=== PATIENT | male | born 1945 | race Hispanic/Latino ===

== ENCOUNTER 2017-12-14 20:17 | Emergency (ER) | payer MEDICARE, BC ==
--- NOTE | 2017-12-14 21:11 | ED PDOC ---
Arrival/HPI - General Chief Complaint: Male Genitourinary Time Seen by Provider: 12/14/17 20:57 - History of Present Illness Narrative History of Present Illness (Text): 72 y/o M c PMHx HTN, HLD, DM, L leg amputation, prostate cancer s/p radiation last treatment 1.5 weeks ago p/w urinary retention x 1-2 days. Patient states feels suprapubic pressure and decreased urination, went to urology office today and had gerardo placed but since, continues to have retention, states only a small amount going into gerardo bag and most of urine coming out of urethra around catheter, requiring patient to wear a diaper. He denies flank pain, fever , vomiting, dyspnea. Past Medical History - Cardiac Hx Pacemaker: No - Pulmonary Hx Respiratory Disorders: No - Neurological Hx Paralysis: No - HEENT Hx HEENT Disorder: No - Renal Hx Renal Disorder: No - Endocrine/Metabolic Hx Endocrine Disorders: No - Hematological/Oncological Hx Blood Transfusions: Yes (2007) Hx Blood Transfusion Reaction: No - Musculoskeletal/Rheumatological Hx Musculoskeletal Disorders: No - Psychiatric Hx Emotional Abuse: No Hx Physical Abuse: No Hx Substance Use: No - Anesthesia Hx Anesthesia Reactions: No Hx Malignant Hyperthermia: No - Suicidal Assessment Feels Threatened In Home Enviroment: No Family/Social History Family/Social History: No Known Family HX Smoking Status: Never Smoked Hx Alcohol Use: Yes (SOCIAL) Hx Substance Use: No Allergies/Home Meds Allergies/Adverse Reactions: Allergies No Known Allergies Allergy (Verified 12/14/17 20:50) Home Medications: Home Meds Medication Instructions Recorded Confirmed MetFORMIN [glucOPHAGE] 1,000 mg PO BID 11/02/16 12/14/17 Aspirin [Aspirin EC] 325 mg PO DAILY 12/14/17 12/14/17 Atorvastatin [Lipitor] 10 mg PO DAILY 12/14/17 12/14/17 GlipiZIDE [Glucotrol] 5 mg PO BID 12/14/17 12/14/17 SITagliptin [Januvia] 100 mg PO DAILY 12/14/17 12/14/17 Review of Systems - Physician Review All systems were reviewed & negative as marked: Yes - Review of Systems Constitutional: absent: Fevers Respiratory: absent: SOB Physical Exam - Physical Exam Narrative Physical Exam (Text): Gen: NAD Head: NC Eyes: EOMI ENT: MMM Neck: Supple Chest: No tenderness CV: Regular rate Resp: No accessory muscle use Abd: Suprapubic distention and tenderness Back: No CVA tenderness : Gerardo in place, bloody urine. Extremities: L leg prosthesis Skin: No rash Neuro: Alert Vital Signs Temp Pulse Resp BP Pulse Ox 12/14/17 21:09 97.9 F 120 H 20 151/84 H 100 Medical Decision Making ED Course and Treatment: Change gerardo and perform CBI 12/14/17 23:58 Urine cleared, urine flowing well into gerardo bag. Will discharge, f/u Urology, return to ED for worsening pain, fever, vomiting, inability to urinate or any other problem. - Lab Interpretations Lab Results: 12/14/17 22:13 12/14/17 22:13 Lab Results 12/14/17 22:15: Urine Color Light yellow, Urine Appearance Sl cloudy, Urine pH 6.0, Ur Specific [place] 1.015, Urine Protein 30 H, Urine Glucose (UA) 500 H, Urine Ketones Negative, Urine Blood Large H, Urine Nitrate Negative, Urine Bilirubin Negative, Urine Urobilinogen 0.2, Ur Leukocyte Esterase Trace H, Urine RBC Tntc, Urine WBC 0 - 2, Ur Epithelial Cells 0 - 2, Urine Bacteria Few 12/14/17 22:13: Sodium 140, Potassium 4.2, Chloride 99, Carbon Dioxide 25, Anion Gap 21 H, BUN 18, Creatinine 0.8, Est GFR ( Amer) > 60, Est GFR ( Non-Af Amer) > 60, Random Glucose 224 H, Calcium 10.4, Total Bilirubin 0.5, AST 20, ALT 15, Alkaline Phosphatase 67, Total Protein 7.6, Albumin 4.2, Globulin 3.4, Albumin/Globulin Ratio 1.3 12/14/17 22:13: WBC 9.0, RBC 4.42, Hgb 12.9 L, Hct 38.9 L, MCV 88.0, MCH 29.2, MCHC 33.2, RDW 13.7, Plt Count 310, MPV 10.0, Gran % 79.3 H, Lymph % (Auto) 15.5 L, Gem % (Auto) 3.1, Eos % (Auto) 1.8, Baso % (Auto) 0.3, Gran # 7.14 H, Lymph # (Auto) 1.4, Gem # (Auto) 0.3, Eos # (Auto) 0.2, Baso # (Auto) 0.03 - Medication Orders Current Medication Orders: Discontinued Medications Ketorolac Tromethamine (Toradol) 15 mg IVP STAT STA Stop: 12/14/17 23:08 Last Admin: 12/14/17 23:15 Dose: 15 mg MAR Pain Assessment Document 12/14/17 23:15 RD (Rec: 12/14/17 23:16 RD [id number]) Pain Reassessment Is this a pain reassessment? No Sleep Is patient sleeping during reassessment? No Presence of Pain Presence of Pain Yes Pain Scale Used Pain Scale Used Numeric Description Description Intermittent Pain Behavior Crying Guarding Facial Grimacing Alleviating Factors/Management Medication Techniques Alleviating Factors Medication IVP Administration Document 12/14/17 23:15 RD (Rec: 12/14/17 23:16 RD [id number]) Charges for Administration # of IVP Administrations 1 Disposition/Present on Arrival - Present on Arrival Any Indicators Present on Arrival: No History of DVT/PE: No History of Uncontrolled Diabetes: No Urinary Catheter: No History of Decub. Ulcer: No History Surgical Site Infection Following: None - Disposition Have Diagnosis and Disposition been Completed?: Yes Diagnosis: Urinary retention Disposition: HOME/ ROUTINE Disposition Time: 23:59 Patient Plan: Discharge Condition: STABLE Discharge Instructions (ExitCare): Urinary Retention (DC) Referrals: Torito THOMAS,Manish Vera MD [Primary Care Provider] - Follow up with primary Forms: [employer] ([place])
[2017-12-14 21:31] VITALS: TEMP 97.9; BMI 26.6
[2017-12-14 22:19] LABS: BASO # 0.03 K/mm3 (0.0-2.0); BASO % 0.3 % (0.0-3.0); EOS # 0.2 (0.0-0.7); EOS % 1.8 % (1.5-5.0); GRAN # 7.14 (1.4-6.5); GRAN % 79.3 % (50.0-68.0); HEMOGLOBIN 12.9 g/dL (14.0-18.0); LYMPH # 1.4 (1.2-3.4); LYMPH % 15.5 % (22.0-35.0); MEAN CORPUSCULAR HEMOGLOBIN 29.2 pg (25.0-35.0); MEAN CORPUSCULAR HGB CONC 33.2 g/dl (31.0-37.0); MONO # 0.3 (0.1-0.6); MONO % 3.1 % (1.0-6.0); RBC 4.42 10^6/uL (3.5-6.1); RED CELL DISTRIBUTION WIDTH 13.7 % (11.5-14.5)
[2017-12-14 22:27] LABS: ALB/GLOB RATIO 1.3 (1.1-1.8); ALBUMIN 4.2 g/dL (3.0-4.8); ALT/SGPT 15 U/L (7-56); AST/SGOT 20 U/L (17-59); BLOOD UREA NITROGEN 18 mg/dL (7-21); CALCIUM 10.4 mg/dL (8.4-10.5); GFR AFRICAN-AMERICAN > 60; GFR NON-AFRICAN AMERICAN > 60
[2017-12-14 22:29] LABS: URINE BILIRUBIN NEGATIVE (NEGATIVE); URINE BLOOD LARGE (NEGATIVE); URINE GLUCOSE (UA) 500 mg/dL (NEGATIVE); URINE LEUKOCYTE ESTERASE TRACE Leu/uL (NEGATIVE); URINE PROTEIN 30 mg/dL (<30 mg/dL); URINE UROBILINOGEN 0.2 E.U./dL (<1 E.U./dL)
[2017-12-14 22:30] LABS: URINE APPEARANCE SL CLOUDY (CLEAR); URINE COLOR LIGHT YELLOW (YELLOW)
[2017-12-14 22:51] LABS: URINE BACTERIA FEW (NEG); URINE EPITHELIAL CELLS 0 - 2 /hpf (0-5); URINE RBC TNTC /hpf (0-2); URINE WBC 0 - 2 /hpf (0-6)
[2017-12-15 00:42] VITALS: BP 141/81; PULSE 78; RESP 18; O2SAT 97
== END 2017-12-15 00:41 | disposition home or self-care (01) ==
LOC: ED 20:17
DX: R33.9 Retention of urine, unspecified (principal); E11.9 Type 2 diabetes mellitus without complications; E78.5 Hyperlipidemia, unspecified; I10 Essential (primary) hypertension; Z85.46 Personal history of malignant neoplasm of prostate
CPT/HCPCS: 80053; 81001; 85025; 87086; 96374; 99284; J1885

== ENCOUNTER 2017-12-22 05:51 | Emergency (ER) | payer MEDICARE, BC ==
[2017-12-22 05:51] VITALS: BMI 26.6
[2017-12-22 06:09] VITALS: BP 158/76; PULSE 86; RESP 18; TEMP 97.5; O2SAT 97
--- NOTE | 2017-12-22 06:13 | ED PDOC ---
Arrival/HPI - General Chief Complaint: Male Genitourinary Time Seen by Provider: 12/22/17 05:54 - History of Present Illness Narrative History of Present Illness (Text): 12/22/17 06:11 72 yo male, hx of prostate ca s/p radiation, presents with urinary retention. seen last week, had gerardo placed. normal labs and cr. pt sent home and f/u with urology. gerardo removed on monday, but states difficulty voiding since yesterday evening. no other complaints. gerardo placed in er with resolution of pain. Past Medical History - Cardiac Hx Pacemaker: No - Pulmonary Hx Respiratory Disorders: No - Neurological Hx Paralysis: No - HEENT Hx HEENT Disorder: No - Renal Hx Renal Disorder: No - Endocrine/Metabolic Hx Endocrine Disorders: No - Hematological/Oncological Hx Blood Transfusions: Yes (2007) Hx Blood Transfusion Reaction: No - Musculoskeletal/Rheumatological Hx Musculoskeletal Disorders: No - Psychiatric Hx Emotional Abuse: No Hx Physical Abuse: No Hx Substance Use: No - Surgical History Hx Eye Surgery: Yes (right) Hx Orthopedic Surgery: Yes (left bka) - Anesthesia Hx Anesthesia Reactions: No Hx Malignant Hyperthermia: No - Suicidal Assessment Feels Threatened In Home Enviroment: No Family/Social History Family/Social History: Unknown Family HX Smoking Status: Former Smoker Hx Alcohol Use: Yes (SOCIAL) Hx Substance Use: No Allergies/Home Meds Allergies/Adverse Reactions: Allergies No Known Allergies Allergy (Verified 12/22/17 06:09) Home Medications: Home Meds Medication Instructions Recorded Confirmed MetFORMIN [glucOPHAGE] 1,000 mg PO BID 11/02/16 12/22/17 Aspirin [Aspirin EC] 325 mg PO DAILY 12/14/17 12/22/17 Atorvastatin [Lipitor] 10 mg PO DAILY 12/14/17 12/22/17 GlipiZIDE [Glucotrol] 5 mg PO BID 12/14/17 12/22/17 SITagliptin [Januvia] 100 mg PO DAILY 12/14/17 12/22/17 Enalapril Maleate [Vasotec] 2.5 mg PO DAILY 12/22/17 12/22/17 Nitrofurantoin Monohyd/M-Cryst 100 mg PO DAILY 12/22/17 12/22/17 [Nitrofurantoin Monohydrate/Macrocrystals] Silodosin [Rapaflo] 8 mg PO DAILY 12/22/17 12/22/17 Review of Systems - Review of Systems Constitutional: Normal Eyes: Normal ENT: Normal Respiratory: Normal Cardiovascular: Normal Gastrointestinal: Abdominal Pain Genitourinary Male: Urinary Output Changes Musculoskeletal: Normal Skin: Normal Neurological: Normal Endocrine: Normal Hemo/Lymphatic: Normal Psychiatric: Normal Physical Exam Vital Signs Temp Pulse Resp BP Pulse Ox 12/22/17 06:05 97.5 F L 86 18 158/76 H 97 Temperature: Afebrile Blood Pressure: Normal Pulse: Regular Respiratory Rate: Normal Appearance: Positive for: Well-Appearing, Non-Toxic, Comfortable Pain Distress: None Mental Status: Positive for: Alert and Oriented X 3 - Systems Exam Head: Present: Atraumatic, Normocephalic Pupils: Present: PERRL Extroacular Muscles: Present: EOMI Conjunctiva: Present: Normal Mouth: Present: Moist Mucous Membranes Neck: Present: Normal Range of Motion Respiratory/Chest: Present: Clear to Auscultation, Good Air Exchange. No: Respiratory Distress, Accessory Muscle Use Cardiovascular: Present: Regular Rate and Rhythm, Normal S1, S2. No: Murmurs Abdomen: No: Tenderness, Distention, Peritoneal Signs, Rebound, Guarding Back: Present: Normal Inspection Upper Extremity: Present: Normal Inspection. No: Cyanosis, Edema Lower Extremity: Present: Normal Inspection. No: Edema Neurological: Present: GCS=15, CN II-XII Intact, Speech Normal Skin: Present: Warm, Dry, Normal Color. No: Rashes Psychiatric: Present: Alert, Oriented x 3, Normal Insight, Normal Concentration Medical Decision Making ED Course and Treatment: 12/22/17 06:12 gerardo placed with resolution of symptoms. normal cr last week. advise outpt fu with urology Disposition/Present on Arrival - Present on Arrival Any Indicators Present on Arrival: No History of DVT/PE: No History of Uncontrolled Diabetes: No Urinary Catheter: No History of Decub. Ulcer: No History Surgical Site Infection Following: None - Disposition Have Diagnosis and Disposition been Completed?: Yes Diagnosis: Urinary retention Disposition: HOME/ ROUTINE Disposition Time: 07:00 Condition: STABLE Discharge Instructions (ExitCare): Urinary Retention Additional Instructions: please follow up with your urologist. return t o er with worsening symptoms or concerns. Referrals: Mracos Montes MD [Staff Provider] - Follow up with primary Forms: [facility] (Gabonese)
== END 2017-12-22 06:35 | disposition home or self-care (01) ==
LOC: ED 05:51
DX: R33.9 Retention of urine, unspecified (principal)

== ENCOUNTER 2017-12-22 07:55 | Emergency (ER) | payer MEDICARE, BC ==
[2017-12-22 07:56] VITALS: BMI 26.6
[2017-12-22 07:59] VITALS: RESP 18; TEMP 98.1
--- NOTE | 2017-12-22 08:16 | ED PDOC ---
Arrival/HPI - General Chief Complaint: Male Genitourinary Time Seen by Provider: 12/22/17 07:57 Historian: Patient - History of Present Illness Narrative History of Present Illness (Text): 12/22/17 08:00 72 year old male, whose PMH includes prostate CA s/p radiation, who presents to the emergency department complaining of leaking gerardo since a new one was placed on 12/19/17. Patient states the gerardo was removed and a new one placed due to pain, but it has not been resolved because it continue leaking and feels pressure and pain on his lower abdomen. Last radiation date was on 12/01/17. Patient denies other complaints. PMD: Dr. Ugarte Urologist: Dr. Huber Time/Duration: < week Symptom Onset: Sudden Symptom Course: Unchanged Activities at Onset: Rest Context: Home Past Medical History - Provider Review Nursing Documentation Reviewed: Yes - Infectious Disease Hx of Infectious Diseases: None - Cardiac Hx Pacemaker: No - Pulmonary Hx Respiratory Disorders: No - Neurological Hx Paralysis: No - HEENT Hx HEENT Disorder: No - Renal Hx Renal Disorder: No - Endocrine/Metabolic Hx Endocrine Disorders: No - Hematological/Oncological Hx Blood Transfusions: Yes (2008) Hx Blood Transfusion Reaction: No - Musculoskeletal/Rheumatological Hx Musculoskeletal Disorders: No - Psychiatric Hx Emotional Abuse: No Hx Physical Abuse: No Hx Substance Use: No - Surgical History Hx Eye Surgery: Yes (right) Hx Orthopedic Surgery: Yes (left bka) - Anesthesia Hx Anesthesia Reactions: No Hx Malignant Hyperthermia: No - Suicidal Assessment Feels Threatened In Home Enviroment: No Family/Social History - Physician Review Nursing Documentation Reviewed: Yes Family/Social History: Unknown Family HX Smoking Status: Former Smoker Hx Alcohol Use: Yes (SOCIAL) Hx Substance Use: No Allergies/Home Meds Allergies/Adverse Reactions: Allergies No Known Allergies Allergy (Verified 12/22/17 06:09) Home Medications: Home Meds Medication Instructions Recorded Confirmed MetFORMIN [glucOPHAGE] 1,000 mg PO BID 11/02/16 12/22/17 Aspirin [Aspirin EC] 325 mg PO DAILY 12/14/17 12/22/17 Atorvastatin [Lipitor] 10 mg PO DAILY 12/14/17 12/22/17 GlipiZIDE [Glucotrol] 5 mg PO BID 12/14/17 12/22/17 SITagliptin [Januvia] 100 mg PO DAILY 12/14/17 12/22/17 Enalapril Maleate [Vasotec] 2.5 mg PO DAILY 12/22/17 12/22/17 Nitrofurantoin Monohyd/M-Cryst 100 mg PO DAILY 12/22/17 12/22/17 [Nitrofurantoin Monohydrate/Macrocrystals] Silodosin [Rapaflo] 8 mg PO DAILY 12/22/17 12/22/17 Review of Systems - Review of Systems Constitutional: absent: Fevers ENT: absent: Sore Throat Respiratory: absent: SOB Cardiovascular: absent: Chest Pain Gastrointestinal: Abdominal Pain (lower abdominal pain ). absent: Diarrhea, Vomiting Genitourinary Male: Other (leaking gerardo). absent: Hematuria Musculoskeletal: absent: Back Pain Skin: absent: Rash Neurological: absent: Headache Endocrine: absent: Diaphoresis Physical Exam Vital Signs Reviewed: Yes Vital Signs Temp Pulse Resp BP Pulse Ox 12/22/17 09:34 86 18 153/78 H 95 12/22/17 07:56 98.1 F 91 H 18 152/86 H 98 Temperature: Afebrile Blood Pressure: Hypertensive Pulse: Tachycardic Respiratory Rate: Normal Appearance: Positive for: Well-Appearing, Non-Toxic, Comfortable Pain Distress: None Mental Status: Positive for: Alert and Oriented X 3 - Systems Exam Head: Present: Atraumatic, Normocephalic Pupils: Present: PERRL Extroacular Muscles: Present: EOMI Conjunctiva: Present: Normal Respiratory/Chest: Present: Clear to Auscultation, Good Air Exchange. No: Respiratory Distress, Accessory Muscle Use, Wheezes, Rales, Rhonchi Cardiovascular: Present: Regular Rate and Rhythm, Normal S1, S2. No: Murmurs Abdomen: No: Tenderness, Distention, Peritoneal Signs, Rebound, Guarding Genitourinary Male: Present: Other (gerardo in place and yellow urine in bag). No : Penile Discharge, Erythema Neurological: Present: GCS=15, CN II-XII Intact, Speech Normal Skin: Present: Warm, Dry, Normal Color. No: Rashes Psychiatric: Present: Alert, Oriented x 3, Normal Insight, Normal Concentration Medical Decision Making ED Course and Treatment: 12/22/17 Impression: 72 year old male, with gerardo in place, yellow urine in bag, and no erythema in penis. Differential Diagnosis included but are not limited to: Bladder Spasm; Needs larger gerardo Plan: -- Motrin -- Gerardo -- Reassess and disposition Prior Visits: Notes and results from previous visits were reviewed. Patient was last seen in the emergency department on 12/21/17 Progress Notes: Patient received a new gerardo [address] YUNI Mayfield. Patient received motrin and Flexeril with improvement of symptoms. He was able to walk with no issues. he was able to pass urine without leakage. He was advised to make sure he follow up with his urologist in 1-2days. - Medication Orders Current Medication Orders: Discontinued Medications Cyclobenzaprine HCl (Flexeril) 5 mg PO STAT STA Stop: 12/22/17 09:03 Last Admin: 12/22/17 09:27 Dose: 5 mg Ibuprofen (Motrin Tab) 600 mg PO STAT STA Stop: 12/22/17 08:18 Last Admin: 12/22/17 08:37 Dose: 600 mg MAR Pain/Vitals Document 12/22/17 08:37 SRE (Rec: 12/22/17 08:38 SRE [id number]) Pain Reassessment Is This A Pain ReAssessment? Yes Sleep Is patient sleeping during reassessment? No Presence of Pain Presence of Pain Yes Pain Scale Used Pain Scale Used Numeric - Scribe Statement The provider has reviewed the documentation as recorded by the Candy Durbin Provider Scribe Attestation: All medical record entries made by the Scribe were at my direction and personally dictated by me. I have reviewed the chart and agree that the record accurately reflects my personal performance of the history, physical exam, medical decision making, and the department course for this patient. I have also personally directed, reviewed, and agree with the discharge instructions and disposition. Disposition/Present on Arrival - Present on Arrival Any Indicators Present on Arrival: No History of DVT/PE: No History of Uncontrolled Diabetes: No Urinary Catheter: No History of Decub. Ulcer: No History Surgical Site Infection Following: None - Disposition Have Diagnosis and Disposition been Completed?: Yes Diagnosis: Urinary retention Disposition: HOME/ ROUTINE Disposition Time: 09:42 Patient Plan: Discharge Condition: IMPROVED Discharge Instructions (ExitCare): Gerardo Catheter, Male Additional Instructions: Mr Chung, thank you for letting us take care of you today. Your provider was Dr. Mcgill. You were treated for Gerardo Replacement. The emergency medical care you received today was directed at your acute symptoms. If you were prescribed any medication, please fill it and take as directed. It may take several days for your symptoms to resolve. Return to the Emergency Department if your symptoms worsen, do not improve, or if you have any other problems. Please contact your doctor or call one of the physicians/clinics you have been referred to that are listed on the Patient Visit Information form that is included in your discharge packet. Bring any paperwork you were given at discharge with you along with any medications you are taking to your follow up visit. Our treatment cannot replace ongoing medical care by a primary care provider (PCP) outside of the emergency department. Thank you for allowing the [facility] team to be part of your care today. If you had an X-Ray or CT scan: A Radiologist will review the ED reading if any change in treatment is needed we will contact you. If you had a blood, urine, or wound culture: It will take several days for the results, if any change in treatment is needed we will contact you. If you had an STI test: It will take 48 hours for the results. Please call after 1 week if you have not heard back. Referrals: [facility] Nona Mohr, [Non-Staff] - Follow up with primary Forms: [facility] [employer] [facility] (Khmer)
[2017-12-22 09:35] VITALS: BP 153/78; PULSE 86; O2SAT 95
== END 2017-12-22 09:42 | disposition home or self-care (01) ==
LOC: ED 07:55
DX: R33.9 Retention of urine, unspecified (principal)

== ENCOUNTER 2017-12-29 04:56 | Emergency (ER) | payer MEDICARE, BC ==
--- NOTE | 2017-12-29 05:59 | ED PDOC ---
Arrival/HPI - General Time Seen by Provider: 12/29/17 05:28 Historian: Patient - History of Present Illness Narrative History of Present Illness (Text): 12/29/17 05:56 A 72 year old male, whose past medical history includes prostate CA and urinary retention, presents to the emergency department complaining of difficulty urinating this evening.The patient notes that he has a history of urinary retention and that he had a catheter removed 2 days ago. He states that his symptoms have returned since then. The patient denies fevers, chills, headache, dizziness, chest pain, shortness of breath, dyspnea on exertion, cough, nausea, vomiting, diarrhea, back pain, neck pain, bowel changes, or any other complaint. PMD: Dr. Ugarte Urologist: Dr. Huber Time/Duration: Other (Today) Symptom Onset: Sudden Symptom Course: Unchanged Activities at Onset: Rest, Light Context: Home Past Medical History - Provider Review Nursing Documentation Reviewed: Yes - Infectious Disease Hx of Infectious Diseases: None - Cardiac Hx Pacemaker: No - Pulmonary Hx Respiratory Disorders: No - Neurological Hx Paralysis: No - HEENT Hx HEENT Disorder: No - Renal Hx Renal Disorder: No - Endocrine/Metabolic Hx Endocrine Disorders: No - Hematological/Oncological Hx Blood Transfusions: Yes (2007) Hx Blood Transfusion Reaction: No - Musculoskeletal/Rheumatological Hx Musculoskeletal Disorders: No - Psychiatric Hx Emotional Abuse: No Hx Physical Abuse: No Hx Substance Use: No - Surgical History Hx Eye Surgery: Yes (right) Hx Orthopedic Surgery: Yes (left bka) - Anesthesia Hx Anesthesia Reactions: No Hx Malignant Hyperthermia: No - Suicidal Assessment Feels Threatened In Home Enviroment: No Family/Social History - Physician Review Nursing Documentation Reviewed: Yes Family/Social History: No Known Family HX Smoking Status: Former Smoker Hx Alcohol Use: Yes (SOCIAL) Hx Substance Use: No Allergies/Home Meds Allergies/Adverse Reactions: Allergies No Known Allergies Allergy (Verified 12/22/17 06:09) Home Medications: Home Meds Medication Instructions Recorded Confirmed MetFORMIN [glucOPHAGE] 1,000 mg PO BID 11/02/16 12/22/17 Aspirin [Aspirin EC] 325 mg PO DAILY 12/14/17 12/22/17 Atorvastatin [Lipitor] 10 mg PO DAILY 12/14/17 12/22/17 GlipiZIDE [Glucotrol] 5 mg PO BID 12/14/17 12/22/17 SITagliptin [Januvia] 100 mg PO DAILY 12/14/17 12/22/17 Enalapril Maleate [Vasotec] 2.5 mg PO DAILY 12/22/17 12/22/17 Nitrofurantoin Monohyd/M-Cryst 100 mg PO DAILY 12/22/17 12/22/17 [Nitrofurantoin Monohydrate/Macrocrystals] Silodosin [Rapaflo] 8 mg PO DAILY 12/22/17 12/22/17 Review of Systems - Physician Review All systems were reviewed & negative as marked: Yes - Review of Systems Constitutional: absent: Fevers, Night Sweats Respiratory: absent: SOB, Cough Cardiovascular: absent: Chest Pain, AMEZQUITA Gastrointestinal: absent: Stool Changes, Diarrhea, Nausea, Vomiting Genitourinary Male: Urinary Output Changes (Urinary retention) Musculoskeletal: absent: Back Pain, Neck Pain Neurological: absent: Headache, Dizziness Physical Exam Vital Signs Reviewed: Yes Vital Signs Temp Pulse Resp BP Pulse Ox 12/29/17 05:45 98.1 F 12/29/17 05:33 97.6 F 82 18 132/71 96 Temperature: Afebrile Blood Pressure: Normal Pulse: Regular Respiratory Rate: Normal Appearance: Positive for: Well-Appearing, Non-Toxic, Comfortable Pain Distress: None Mental Status: Positive for: Alert and Oriented X 3 - Systems Exam Head: Present: Atraumatic, Normocephalic Pupils: Present: PERRL Extroacular Muscles: Present: EOMI Conjunctiva: Present: Normal Mouth: Present: Moist Mucous Membranes Neck: Present: Normal Range of Motion Respiratory/Chest: Present: Clear to Auscultation, Good Air Exchange. No: Respiratory Distress, Accessory Muscle Use Cardiovascular: Present: Regular Rate and Rhythm, Normal S1, S2. No: Murmurs Abdomen: Present: Distention (Suprapubic distension ). No: Peritoneal Signs Back: Present: Normal Inspection Upper Extremity: Present: Normal Inspection. No: Cyanosis, Edema Lower Extremity: Present: Normal Inspection. No: Edema Neurological: Present: GCS=15, CN II-XII Intact, Speech Normal Skin: Present: Warm, Dry, Normal Color. No: Rashes Psychiatric: Present: Alert, Oriented x 3, Normal Insight, Normal Concentration Medical Decision Making ED Course and Treatment: 12/29/17 06:00 Impression: A 72 year old male presents to the emergency department complaining of urinary retention this evening. Patient notes he had a catheter removed 2 days ago. Plan: -- Reassess and disposition Progress Notes: 12/29/17 06:20 Pt. had gerardo catheter placed with passage of clear urine and relief. - Scribe Statement The provider has reviewed the documentation as recorded by the Scribe Selena Omalley Provider Scribe Attestation: All medical record entries made by the Scribe were at my direction and personally dictated by me. I have reviewed the chart and agree that the record accurately reflects my personal performance of the history, physical exam, medical decision making, and the department course for this patient. I have also personally directed, reviewed, and agree with the discharge instructions and disposition. Disposition/Present on Arrival - Present on Arrival Any Indicators Present on Arrival: No History of DVT/PE: No History of Uncontrolled Diabetes: No Urinary Catheter: No History Surgical Site Infection Following: None - Disposition Have Diagnosis and Disposition been Completed?: Yes Diagnosis: Urinary retention Disposition: HOME/ ROUTINE Disposition Time: 06:40 Patient Plan: Discharge Condition: GOOD Discharge Instructions (ExitCare): Urinary Retention (DC), Gerardo Catheter, Male Additional Instructions: Maintain gerardo catheter/use leg bag/follow up with your urologist this week
[2017-12-29 06:13] VITALS: BMI 25.8
[2017-12-29 07:54] VITALS: BP 130/72; PULSE 74; RESP 17; TEMP 98; O2SAT 98
== END 2017-12-29 07:54 | disposition home or self-care (01) ==
LOC: ED 04:56
DX: R33.9 Retention of urine, unspecified (principal); Z85.46 Personal history of malignant neoplasm of prostate; Z87.891 Personal history of nicotine dependence

== ENCOUNTER 2017-12-31 04:44 | Emergency (ER) | payer MEDICARE, BC ==
[2017-12-31 04:45] VITALS: BMI 25.8
--- NOTE | 2017-12-31 06:29 | ED PDOC ---
Arrival/HPI - General Chief Complaint: Male Genitourinary Time Seen by Provider: 12/31/17 04:53 Historian: Patient, Spouse - History of Present Illness Narrative History of Present Illness (Text): 72yoM, with hx of chronic urinary retention, had gerardo placed 2 days ago and now having difficulty voiding and having abdomen discomfort, but otherwise no n/ v/son/dizziness/sob/chest pain/numbness/tingling/blood in urine. 12/31/17 06:28 Time/Duration: Prior to Arrival Symptom Onset: Gradual Symptom Course: Unchanged Quality: Aching Severity Level: 2 Activities at Onset: Rest Context: Sitting Past Medical History - Provider Review Nursing Documentation Reviewed: Yes - Travel History Have you recently traveled outside [place] w/in the past 3 mons?: No - Infectious Disease Hx of Infectious Diseases: None - Cardiac Hx Pacemaker: No - Pulmonary Hx Respiratory Disorders: No - Neurological Hx Paralysis: No - HEENT Hx HEENT Disorder: No - Renal Hx Renal Disorder: No - Endocrine/Metabolic Hx Endocrine Disorders: No - Hematological/Oncological Hx Blood Transfusions: Yes (2007) Hx Blood Transfusion Reaction: No - Musculoskeletal/Rheumatological Hx Musculoskeletal Disorders: No - Gastrointestinal Hx Gastrointestinal Disorders: No - Genitourinary/Gynecological Hx Prostate Problems: Yes - Psychiatric Hx Emotional Abuse: No Hx Physical Abuse: No Hx Substance Use: No - Surgical History Hx Eye Surgery: Yes (right) Hx Orthopedic Surgery: Yes (left bka) - Anesthesia Hx Anesthesia Reactions: No Hx Malignant Hyperthermia: No - Suicidal Assessment Feels Threatened In Home Enviroment: No Family/Social History - Physician Review Nursing Documentation Reviewed: Yes Family/Social History: No Known Family HX Smoking Status: Former Smoker Hx Alcohol Use: Yes (SOCIAL) Hx Substance Use: No Allergies/Home Meds Allergies/Adverse Reactions: Allergies No Known Allergies Allergy (Verified 12/22/17 06:09) Home Medications: Home Meds Medication Instructions Recorded Confirmed MetFORMIN [glucOPHAGE] 1,000 mg PO BID 11/02/16 12/22/17 Aspirin [Aspirin EC] 325 mg PO DAILY 12/14/17 12/22/17 Atorvastatin [Lipitor] 10 mg PO DAILY 12/14/17 12/22/17 GlipiZIDE [Glucotrol] 5 mg PO BID 12/14/17 12/22/17 SITagliptin [Januvia] 100 mg PO DAILY 12/14/17 12/22/17 Enalapril Maleate [Vasotec] 2.5 mg PO DAILY 12/22/17 12/22/17 Nitrofurantoin Monohyd/M-Cryst 100 mg PO DAILY 12/22/17 12/22/17 [Nitrofurantoin Monohydrate/Macrocrystals] Silodosin [Rapaflo] 8 mg PO DAILY 12/22/17 12/22/17 Review of Systems - Review of Systems Constitutional: Normal Eyes: Normal ENT: Normal Respiratory: Normal Cardiovascular: Normal Gastrointestinal: Normal Genitourinary Male: Urinary Output Changes Musculoskeletal: Normal Skin: Normal Neurological: Normal Endocrine: Normal Hemo/Lymphatic: Normal Psychiatric: Normal Physical Exam Vital Signs Reviewed: Yes Vital Signs Temp Pulse Resp BP Pulse Ox 12/31/17 05:26 98.0 F 90 18 166/90 H 98 Temperature: Afebrile Blood Pressure: Hypertensive Pulse: Regular Respiratory Rate: Normal Appearance: Positive for: Non-Toxic, Uncomfortable Pain Distress: None Mental Status: Positive for: Alert and Oriented X 3 - Systems Exam Head: Present: Atraumatic, Normocephalic Pupils: Present: PERRL Extroacular Muscles: Present: EOMI Conjunctiva: Present: Normal Ears: Present: Normal Mouth: Present: Moist Mucous Membranes Pharnyx: Present: Normal Nose (External): Present: Atraumatic Nose (Internal): Present: Normal Inspection Neck: Present: Normal Range of Motion Respiratory/Chest: Present: Clear to Auscultation, Good Air Exchange Cardiovascular: Present: Regular Rate and Rhythm Abdomen: No: Tenderness, Distention, Normal Bowel Sounds, Peritoneal Signs, Rebound, Guarding, McBurney's Point Tender, Rovsing's Sign Present, Hernias, Feeding Tubes, Ostomy Tubes, Mass/Organomegaly, Scars, Other Genitourinary Male: Present: Normal External Genitalia. No: Circumcised Penis, Lesions, Penile Discharge, Testicle Tenderness, Penile Swelling, Masses, Erythema, Hernias, Testicle Swelling, Prostate Tenderness, Prostate Enlargement , Other Upper Extremity: Present: Normal Inspection Lower Extremity: Present: Normal Inspection Neurological: Present: GCS=15, CN II-XII Intact, Speech Normal, Motor Func Grossly Intact Skin: Present: Warm, Normal Color Psychiatric: Present: Alert, Oriented x 3, Normal Insight, Normal Concentration Medical Decision Making ED Course and Treatment: 72yoM, with hx of chronic urinary retention, had gerardo placed 2 days ago and now having difficulty voiding and having abdomen discomfort, but otherwise no n/ v/son/dizziness/sob/chest pain/numbness/tingling/blood in urine. You were otherwise breathing easily, pink moist lips, smiling and talking with your , good strength/sensation, alert/oriented, walking easily, clear lungs, no abdomen tenderness, catheter in place without penis/scrotal/testicular discomfort, no fever temp 98, stable heart rate 90, stable breathing rate 18, excellent oxygen level 98% room air, elevated blood pressure 166/90 which we recommend repeat in 2-3 days primary care office to determine further treatment , you have blood tests no infection count 7.3, stable blood level hemoglobin 11.8/platelets 285, stable chemistry, urine test no acute sign of infection, tylenol, observation done in the ED. signed out to Dr. Vidales to radiology imaging/disposition. 12/31/17 07:46 Reassessment Condition: Re-examined, Improved - Lab Interpretations Lab Results: 12/31/17 06:12 12/31/17 06:12 Lab Results 12/31/17 06:14: Urine Color Yellow, Urine Appearance Sl cloudy, Urine pH 6.0, Ur Specific [place] >= 1.030, Urine Protein 30 H, Urine Glucose (UA) Negative, Urine Ketones Trace H, Urine Blood Moderate H, Urine Nitrate Negative, Urine Bilirubin Negative, Urine Urobilinogen 0.2, Ur Leukocyte Esterase Negative, Urine RBC 2 - 5, Urine WBC 0 - 2, Ur Epithelial Cells 1 - 3, Urine Bacteria Few 12/31/17 06:12: Sodium 140, Potassium 4.4, Chloride 103, Carbon Dioxide 24, Anion Gap 18, BUN 25 H, Creatinine 0.7 L, Est GFR ( Amer) > 60, Est GFR ( Non-Af Amer) > 60, Random Glucose 123 H, Calcium 9.4, Total Bilirubin 0.3, AST 20, ALT 19, Alkaline Phosphatase 62, Total Protein 6.7, Albumin 3.9, Globulin 2.8, Albumin/Globulin Ratio 1.4, Lipase 125 12/31/17 06:12: PT 10.9, INR 0.95, APTT 29.4 12/31/17 06:12: WBC 7.3, RBC 4.08, Hgb 11.8 L, Hct 35.9 L, MCV 88.0, MCH 28.9, MCHC 32.9, RDW 13.7, Plt Count 285, MPV 9.7, Gran % 71.2 H, Lymph % (Auto) 19.4 L, [place] % (Auto) 6.2 H, Eos % (Auto) 2.8, Baso % (Auto) 0.4, Gran # 5.16, Lymph # (Auto) 1.4, Cross # (Auto) 0.5, Eos # (Auto) 0.2, Baso # (Auto) 0.03 - RAD Interpretation Radiology Orders: 12/31/17 06:53 ABDOMEN & PELVIS [ABD & PELVIS IV CONTRAST ONLY] [CT] Stat - Medication Orders Current Medication Orders: Sodium Chloride (Sodium Chloride 0.9%) 1,000 mls @ 100 mls/hr IV .Q10H LILIA Last Admin: 12/31/17 07:13 Dose: 100 mls/hr eMAR Start Stop Document 12/31/17 07:13 IT (Rec: 12/31/17 07:13 IT [id number] Intravenous Solution Start Date 12/31/17 Start Time 07:13 Discontinued Medications Acetaminophen (Tylenol 325mg Tab) 975 mg PO STAT STA Stop: 12/31/17 05:59 Last Admin: 12/31/17 06:25 Dose: 975 mg MAR Pain/Vitals Document 12/31/17 06:25 IT (Rec: 12/31/17 06:27 IT [id number]) Pain Reassessment Is This A Pain ReAssessment? No Sleep Is patient sleeping during reassessment? No Presence of Pain Presence of Pain Yes Pain Scale Used Pain Scale Used Numeric Location Left, Right or Bilateral Bilateral Pain Location Body Site Abdomen Disposition/Present on Arrival - Present on Arrival History of DVT/PE: No History of Uncontrolled Diabetes: No Urinary Catheter: No History of Decub. Ulcer: No History Surgical Site Infection Following: None - Disposition Referrals: [employer] Nona Mohr, [Primary Care Provider] - Follow up with primary Forms: [employer] (Ukrainian)
[2017-12-31 06:30] LABS: BASO # 0.03 K/mm3 (0.0-2.0); BASO % 0.4 % (0.0-3.0); EOS # 0.2 (0.0-0.7); EOS % 2.8 % (1.5-5.0); GRAN # 5.16 (1.4-6.5); GRAN % 71.2 % (50.0-68.0); HEMOGLOBIN 11.8 g/dL (14.0-18.0); LYMPH # 1.4 (1.2-3.4); LYMPH % 19.4 % (22.0-35.0); MEAN CORPUSCULAR HEMOGLOBIN 28.9 pg (25.0-35.0); MEAN CORPUSCULAR HGB CONC 32.9 g/dl (31.0-37.0); MEAN PLATELET VOLUME 9.7 fl (7.0-11.0); MONO # 0.5 (0.1-0.6); MONO % 6.2 % (1.0-6.0); RBC 4.08 10^6/uL (3.5-6.1); RED CELL DISTRIBUTION WIDTH 13.7 % (11.5-14.5); WHITE BLOOD COUNT 7.3 10^3/ul (4.5-11.0)
[2017-12-31 06:40] LABS: URINE BILIRUBIN NEGATIVE (NEGATIVE); URINE BLOOD MODERATE (NEGATIVE); URINE GLUCOSE (UA) NEGATIVE (NEGATIVE); URINE LEUKOCYTE ESTERASE NEGATIVE Leu/uL (NEGATIVE); URINE PROTEIN 30 mg/dL (<30 mg/dL); URINE UROBILINOGEN 0.2 E.U./dL (<1 E.U./dL)
[2017-12-31 06:43] LABS: ALB/GLOB RATIO 1.4 (1.1-1.8); ALBUMIN 3.9 g/dL (3.0-4.8); ALT/SGPT 19 U/L (7-56); AST/SGOT 20 U/L (17-59); BLOOD UREA NITROGEN 25 mg/dL (7-21); CALCIUM 9.4 mg/dL (8.4-10.5); GFR AFRICAN-AMERICAN > 60; GFR NON-AFRICAN AMERICAN > 60; LIPASE 125 U/L (23-300)
[2017-12-31 07:00] LABS: URINE APPEARANCE SL CLOUDY (CLEAR); URINE COLOR YELLOW (YELLOW)
[2017-12-31] MEDS ORDERED: Sodium Chloride 0.9% 1,000 ML IV SCH (07:00)
[2017-12-31 07:01] LABS: URINE BACTERIA FEW (NEG); URINE WBC 0 - 2 /hpf (0-6)
[2017-12-31] MEDS ORDERED: Iohexol 350 MG/100 ML VIAL ONE (07:01)
[2017-12-31 07:09] LABS: INR 0.95 (0.93-1.08); PARTIAL THROMBOPLASTIN TIME 29.4 Seconds (25.1-36.5); PROTHROMBIN TIME 10.9 SECONDS (9.4-12.5)
--- NOTE | 2017-12-31 08:19 | ED PDOC ---
Physical Exam Vital Signs Reviewed: Yes Vital Signs Temp Pulse Resp BP Pulse Ox 12/31/17 09:50 75 16 150/60 95 12/31/17 05:26 98.0 F 90 18 166/90 H 98 Temperature: Afebrile Blood Pressure: Normal Pulse: Regular Respiratory Rate: Normal Appearance: Positive for: Well-Appearing, Non-Toxic, Comfortable Pain Distress: None Mental Status: Positive for: Alert and Oriented X 3 - Systems Exam Head: Present: Atraumatic, Normocephalic Pupils: Present: PERRL Extroacular Muscles: Present: EOMI Conjunctiva: Present: Normal Mouth: Present: Moist Mucous Membranes Neck: Present: Normal Range of Motion Respiratory/Chest: Present: Clear to Auscultation, Good Air Exchange. No: Respiratory Distress, Accessory Muscle Use Cardiovascular: Present: Regular Rate and Rhythm, Normal S1, S2. No: Murmurs Abdomen: Present: Other (serially benign abdominal exams ). No: Tenderness, Distention, Peritoneal Signs Back: Present: Normal Inspection Upper Extremity: Present: Normal Inspection. No: Cyanosis, Edema Lower Extremity: Present: Normal Inspection. No: Edema Neurological: Present: GCS=15, CN II-XII Intact, Speech Normal, Motor Func Grossly Intact, Normal Sensory Function, Normal Cerebellar Funct, Norm Deep Tendon Reflexes, Memory Normal, Normal 2Pt Descrimination Skin: Present: Warm, Dry, Normal Color. No: Rashes Psychiatric: Present: Alert, Oriented x 3, Normal Insight, Normal Concentration Medical Decision Making ED Course and Treatment: 12/31/17 08:19 Case signed out to me by Dr. Nelson. Pending CT abdomen and pelvis, reevaluation and final disposition. 12/31/17 09:50 CT Abdomen and Pelvis with contrast Creator : Avila Alanis MD FINDINGS: LOWER THORAX: Subpleural fibrosis bilateral lower lobes. LIVER: Unremarkable. No gross lesion or ductal dilatation. GALLBLADDER AND BILE DUCTS: Cholelithiasis. Contracted gallbladder. No mural thickening or pericholecystic fluid. PANCREAS: Unremarkable. No gross lesion or ductal dilatation. SPLEEN: Unremarkable. ADRENALS: Unremarkable. No mass. KIDNEYS AND URETERS: Evaluation for renal calculus limited by the presence of excreted contrast in the urinary collecting system. 2 right renal cortical cysts , 11 mm and 2.3 cm, respectively. No change. No hydronephrosis. 3 mm nonobstructing calculus distal left ureter (series 3, image 165. VASCULATURE: Aneurysmal dilatation of the infrarenal abdominal aorta to a diameter of 3.6 cm. This has increased in diameter from 3.4 cm observed on prior examination of 02/02/2017. BOWEL: Diverticulosis of the transverse, descending and sigmoid colon. No evidence of diverticulitis. No bowel obstruction. APPENDIX: Normal appendix. PERITONEUM: Left inguinal hernia containing only mesenteric fat. No ascites. LYMPH NODES: Unremarkable. No enlarged lymph nodes. BLADDER: Decompressed around Beckett catheter balloon. Minimally increased diameter of the infrarenal abdominal aorta. Cholelithiasis without evidence of cholecystitis. Additional minor findings as above. REPRODUCTIVE: Unremarkable prostate BONES: Minimal anterior wedge compression deformity of the T11 vertebra unchanged from prior examination. No acute fracture. IMPRESSION: Nonobstructing distal left ureteral 3 mm calculus. 12/31/17 11:42 Dr. Hunt covering , a Urology group at [place] (where patient is followed for prostate cancer , s/p per radiation therapy for prostate cancer last reatment 2 weeks prior ) was contacted and pt fndings discussed and he concurred with [facility], initally advising against maintained leg bag placement, but 12/31/17 11:45 - Lab Interpretations Lab Results: 12/31/17 06:12 12/31/17 06:12 Lab Results 12/31/17 06:14: Urine Color Yellow, Urine Appearance Sl cloudy, Urine pH 6.0, Ur Specific [place] >= 1.030, Urine Protein 30 H, Urine Glucose (UA) Negative, Urine Ketones Trace H, Urine Blood Moderate H, Urine Nitrate Negative, Urine Bilirubin Negative, Urine Urobilinogen 0.2, Ur Leukocyte Esterase Negative, Urine RBC 2 - 5, Urine WBC 0 - 2, Ur Epithelial Cells 1 - 3, Urine Bacteria Few 12/31/17 06:12: Sodium 140, Potassium 4.4, Chloride 103, Carbon Dioxide 24, Anion Gap 18, BUN 25 H, Creatinine 0.7 L, Est GFR ( Amer) > 60, Est GFR ( Non-Af Amer) > 60, Random Glucose 123 H, Calcium 9.4, Total Bilirubin 0.3, AST 20, ALT 19, Alkaline Phosphatase 62, Total Protein 6.7, Albumin 3.9, Globulin 2.8, Albumin/Globulin Ratio 1.4, Lipase 125 12/31/17 06:12: PT 10.9, INR 0.95, APTT 29.4 12/31/17 06:12: WBC 7.3, RBC 4.08, Hgb 11.8 L, Hct 35.9 L, MCV 88.0, MCH 28.9, MCHC 32.9, RDW 13.7, Plt Count 285, MPV 9.7, Gran % 71.2 H, Lymph % (Auto) 19.4 L, [place] % (Auto) 6.2 H, Eos % (Auto) 2.8, Baso % (Auto) 0.4, Gran # 5.16, Lymph # (Auto) 1.4, [place] # (Auto) 0.5, Eos # (Auto) 0.2, Baso # (Auto) 0.03 I have reviewed the lab results: Yes - RAD Interpretation Radiology Orders: 12/31/17 06:53 ABDOMEN & PELVIS [ABD & PELVIS IV CONTRAST ONLY] [CT] Stat - Medication Orders Current Medication Orders: Sodium Chloride (Sodium Chloride 0.9%) 1,000 mls @ 100 mls/hr IV .Q10H LILIA Last Admin: 12/31/17 07:13 Dose: 100 mls/hr eMAR Start Stop Document 12/31/17 07:13 IT (Rec: 12/31/17 07:13 IT [facility] [id number]) Intravenous Solution Start Date 12/31/17 Start Time 07:13 Discontinued Medications Acetaminophen (Tylenol 325mg Tab) 975 mg PO STAT STA Stop: 12/31/17 05:59 Last Admin: 12/31/17 06:25 Dose: 975 mg [facility] Pain/Vitals Document 12/31/17 06:25 IT (Rec: 12/31/17 06:27 IT [facility] [id number]) Pain Reassessment Is This A Pain ReAssessment? No Sleep Is patient sleeping during reassessment? No Presence of Pain Presence of Pain Yes Pain Scale Used Pain Scale Used Numeric Location Left, Right or Bilateral Bilateral Pain Location Body Site Abdomen Re-Assess: MAR Pain/Vitals Document 12/31/17 07:25 SRE (Rec: 12/31/17 07:53 SRE [id number]) Pain Reassessment Is This A Pain ReAssessment? Yes Sleep Is patient sleeping during reassessment? No Presence of Pain Presence of Pain Yes Location Pain Location Body Site Abdomen Description Constant Ciprofloxacin (Cipro) 500 mg PO ONCE STA PRN Reason: Protocol Stop: 12/31/17 10:17 Last Admin: 12/31/17 10:50 Dose: 500 mg Morphine Sulfate (Morphine) 2 mg IVP STAT STA Stop: 12/31/17 10:25 Tamsulosin HCl (Flomax) 0.4 mg PO STAT STA Stop: 12/31/17 10:18 Last Admin: 12/31/17 10:50 Dose: 0.4 mg - Scribe Statement The provider has reviewed the documentation as recorded by the Candy Jerez Provider Scribe Attestation: All medical record entries made by the Scribjay were at my direction and personally dictated by me. I have reviewed the chart and agree that the record accurately reflects my personal performance of the history, physical exam, medical decision making, and the department course for this patient. I have also personally directed, reviewed, and agree with the discharge instructions and disposition. Disposition/Present on Arrival - Present on Arrival Any Indicators Present on Arrival: No History of DVT/PE: No History of Uncontrolled Diabetes: No Urinary Catheter: Yes (urinary retention prophylaxis ) History of Decub. Ulcer: No History Surgical Site Infection Following: None - Disposition Have Diagnosis and Disposition been Completed?: Yes Diagnosis: Ureterolithiasis Disposition: HOME/ ROUTINE Disposition Time: 11:50 Patient Plan: Discharge Patient Problems: Current Active Problems Problem Status Onset Ureterolithiasis Acute Condition: IMPROVED Discharge Instructions (ExitCare): Renal Colic (DC), Urinary Retention (DC) Print Language: NICARAGUAN Additional Instructions: Continue with your regular management. TAKE THE FLOMAX USUAL . Take the pain medicine as needed for your pain . And antibiotic prophylaxis. Follow up with Dr. Gupta as scheduled in 1 week. return if you develop fever/intractable pain / and or vomtiting or rigors/chills /shakes. Regarding you abdominal aorta follow up with you r vascular surgeon and inform him of your infrarenal aorta which has expanded evidently from 3.4 cm to 3.6 cm as seen on the ct scan report that I gave you . Prescriptions: Acetaminophen with Codeine [Tylenol with Codeine #3 Tablet] 1 each PO Q6 PRN # 18 tablet PRN Reason: Pain, Severe (8-10) Nitrofurantoin Macrocrystals [Macrobid] 100 mg PO BID #20 cap Referrals: Colleen Mohr, [Primary Care Provider] - Follow up with primary Forms: [employer] (Nepalese)
--- NOTE | 2017-12-31 09:48 | CT ---
PROCEDURE: CT Abdomen and Pelvis with contrast HISTORY: 72yoM, abdomen/pelvic pain COMPARISON: 02/02/2017 TECHNIQUE: Contrast dose: Omnipaque 350 Radiation dose: Total exam DLP = 748.15 mGy-cm. This CT exam was performed using one or more of the following dose reduction techniques: Automated exposure control, adjustment of the mA and/or kV according to patient size, and/or use of iterative reconstruction technique. FINDINGS: LOWER THORAX: Subpleural fibrosis bilateral lower lobes. LIVER: Unremarkable. No gross lesion or ductal dilatation. GALLBLADDER AND BILE DUCTS: Cholelithiasis. Contracted gallbladder. No mural thickening or pericholecystic fluid. PANCREAS: Unremarkable. No gross lesion or ductal dilatation. SPLEEN: Unremarkable. ADRENALS: Unremarkable. No mass. KIDNEYS AND URETERS: Evaluation for renal calculus limited by the presence of excreted contrast in the urinary collecting system. 2 right renal cortical cysts, 11 mm and 2.3 cm, respectively. No change. No hydronephrosis. 3 mm nonobstructing calculus distal left ureter (series 3, image 165. VASCULATURE: Aneurysmal dilatation of the infrarenal abdominal aorta to a diameter of 3.6 cm. This has increased in diameter from 3.4 cm observed on prior examination of 02/02/2017. BOWEL: Diverticulosis of the transverse, descending and sigmoid colon. No evidence of diverticulitis. No bowel obstruction. APPENDIX: Normal appendix. PERITONEUM: Left inguinal hernia containing only mesenteric fat. No ascites. LYMPH NODES: Unremarkable. No enlarged lymph nodes. BLADDER: Decompressed around Beckett catheter balloon. Minimally increased diameter of the infrarenal abdominal aorta. Cholelithiasis without evidence of cholecystitis. Additional minor findings as above. REPRODUCTIVE: Unremarkable prostate BONES: Minimal anterior wedge compression deformity of the T11 vertebra unchanged from prior examination. No acute fracture. OTHER FINDINGS: None. IMPRESSION: Nonobstructing distal left ureteral 3 mm calculus.
[2017-12-31 09:51] VITALS: O2SAT 95
[2017-12-31] MEDS ORDERED: Oxycodone/Acetaminophen 5/325 mg Tab PO STA (10:21)
[2017-12-31] MEDS ORDERED: Morphine 2 mg/ml ISec IVP STA (10:22)
[2017-12-31 12:55] VITALS: BP 148/86; PULSE 74; RESP 18; TEMP 98.2
== END 2017-12-31 12:56 | disposition home or self-care (01) ==
LOC: ED 04:44
DX: N20.1 Calculus of ureter (principal); C61 Malignant neoplasm of prostate; Z87.891 Personal history of nicotine dependence
CPT/HCPCS: 74177; 80053; 81001; 83690; 85025; 85610; 85730; 87086; 96374; 99285; J2270; J7040; Q9967

== ENCOUNTER 2018-03-06 02:35 | Emergency (ER) | payer MEDICARE, BC ==
[2018-03-06 02:36] VITALS: BMI 25.8
[2018-03-06 02:43] VITALS: O2SAT 96
--- NOTE | 2018-03-06 02:47 | ED PDOC ---
Arrival/HPI - General Chief Complaint: Male Genitourinary Time Seen by Provider: 03/06/18 02:43 Historian: Patient - History of Present Illness Narrative History of Present Illness (Text): 03/06/18 02:46 John Chung is a 72 year old male, whose past medical history includes prostate cancer, who presents to the Emergency department complaining of urinary retention since yesterday. Patient reports some associated suprapubic discomfort secondary to urinary retention. Patient denies any dysuria, nausea, vomiting, back pain, fever, chills, headache, dizziness, or any other complaints. Time/Duration: Other (yesterday) Symptom Onset: Gradual Symptom Course: Unchanged Activities at Onset: Light Context: Home Past Medical History - Provider Review Nursing Documentation Reviewed: Yes - Infectious Disease Hx of Infectious Diseases: None - Cardiac Hx Pacemaker: No - Pulmonary Hx Respiratory Disorders: No - Neurological Hx Paralysis: No - HEENT Hx HEENT Disorder: No - Renal Hx Renal Disorder: No - Endocrine/Metabolic Hx Endocrine Disorders: No - Hematological/Oncological Hx Blood Transfusions: Yes (2008) Hx Blood Transfusion Reaction: No - Musculoskeletal/Rheumatological Hx Musculoskeletal Disorders: No - Gastrointestinal Hx Gastrointestinal Disorders: No - Genitourinary/Gynecological Hx Prostate Problems: Yes - Psychiatric Hx Emotional Abuse: No Hx Physical Abuse: No Hx Substance Use: No - Surgical History Hx Eye Surgery: Yes (right) Hx Orthopedic Surgery: Yes (left bka) - Anesthesia Hx Anesthesia Reactions: No Hx Malignant Hyperthermia: No - Suicidal Assessment Feels Threatened In Home Enviroment: No Family/Social History - Physician Review Nursing Documentation Reviewed: Yes Family/Social History: Unknown Family HX Smoking Status: Former Smoker Hx Alcohol Use: Yes (SOCIAL) Hx Substance Use: No Allergies/Home Meds Allergies/Adverse Reactions: Allergies No Known Allergies Allergy (Verified 03/06/18 02:40) Home Medications: Home Meds Medication Instructions Recorded Confirmed MetFORMIN [glucOPHAGE] 1,000 mg PO BID 11/02/16 03/06/18 Aspirin [Aspirin EC] 325 mg PO DAILY 12/14/17 03/06/18 Atorvastatin [Lipitor] 10 mg PO DAILY 12/14/17 03/06/18 GlipiZIDE [Glucotrol] 5 mg PO BID 12/14/17 03/06/18 SITagliptin [Januvia] 100 mg PO DAILY 12/14/17 03/06/18 Enalapril Maleate [Vasotec] 2.5 mg PO DAILY 12/22/17 03/06/18 Nitrofurantoin Monohyd/M-Cryst 100 mg PO DAILY 12/22/17 03/06/18 [Nitrofurantoin Monohydrate/Macrocrystals] Silodosin [Rapaflo] 8 mg PO DAILY 12/22/17 03/06/18 Review of Systems - Physician Review All systems were reviewed & negative as marked: Yes - Review of Systems Constitutional: Normal. absent: Fevers Eyes: Normal ENT: Normal Respiratory: Normal. absent: SOB, Cough Cardiovascular: Normal. absent: Chest Pain Gastrointestinal: Abdominal Pain. absent: Constipation, Diarrhea, Nausea Genitourinary Male: Urinary Output Changes (+urinary retention). absent: Dysuria, Frequency Musculoskeletal: Normal. absent: Back Pain, Neck Pain Skin: Normal. absent: Rash Neurological: Normal. absent: Headache, Dizziness Endocrine: Normal Hemo/Lymphatic: Normal Psychiatric: Normal Physical Exam Vital Signs Reviewed: Yes Vital Signs Temp Pulse Resp BP Pulse Ox 03/06/18 02:40 98.1 F 80 20 167/112 H 96 Temperature: Afebrile Blood Pressure: Hypertensive Pulse: Regular Respiratory Rate: Normal Appearance: Positive for: Well-Appearing, Non-Toxic, Comfortable Pain Distress: None Mental Status: Positive for: Alert and Oriented X 3 - Systems Exam Head: Present: Atraumatic, Normocephalic Pupils: Present: PERRL Extroacular Muscles: Present: EOMI Conjunctiva: Present: Normal Mouth: Present: Moist Mucous Membranes Neck: Present: Normal Range of Motion Respiratory/Chest: Present: Clear to Auscultation, Good Air Exchange. No: Respiratory Distress, Accessory Muscle Use Cardiovascular: Present: Regular Rate and Rhythm, Normal S1, S2. No: Murmurs Abdomen: Present: Distention (Suprapubic fullness). No: Tenderness, Peritoneal Signs Medical Decision Making ED Course and Treatment: 03/06/18 02:46 Impression: 72 year old male complaining of urinary retention since yesterday Differential Diagnosis included but are not limited to: urinary retention Plan: -- Beckett catheter placement -- Reassess and disposition Prior Visits: Notes and results from previous visits were reviewed. On 12/31/2017, pt was seen in the Emergency department for urinary retention. Pt was d/c home. Progress Notes: 03/06/18 05:17 Pt had a Beckett catheter placed, with passage of urine. Pt had been experiencing some bladder spasms, relieved with medication here in ER. 03/06/18 06:30 On re-evaluation, patient now requesting that Beckett catheter be removed.Would like a trial without it.Understands that he may retain urine again.Patient was instructed to follow up with his urologist or return if symptoms re occur. - Medication Orders Current Medication Orders: Discontinued Medications Alprazolam (Xanax) 0.25 mg PO ONCE ONE Stop: 03/06/18 03:32 Last Admin: 03/06/18 03:41 Dose: 0.25 mg Cyclobenzaprine HCl (Flexeril) 10 mg PO ONCE ONE Stop: 03/06/18 03:35 Last Admin: 03/06/18 03:41 Dose: 10 mg Ibuprofen (Motrin Tab) 600 mg PO STAT STA Stop: 03/06/18 04:26 Last Admin: 03/06/18 04:36 Dose: 600 mg - Scribe Statement The provider has reviewed the documentation as recorded by the Candy Motley Provider Scribe Attestation: All medical record entries made by the Candy were at my direction and personally dictated by me. I have reviewed the chart and agree that the record accurately reflects my personal performance of the history, physical exam, medical decision making, and the department course for this patient. I have also personally directed, reviewed, and agree with the discharge instructions and disposition. Disposition/Present on Arrival - Present on Arrival Any Indicators Present on Arrival: No History of DVT/PE: No History of Uncontrolled Diabetes: No Urinary Catheter: No History of Decub. Ulcer: No History Surgical Site Infection Following: None - Disposition Have Diagnosis and Disposition been Completed?: Yes Diagnosis: Urinary retention Disposition: HOME/ ROUTINE Disposition Time: 06:04 Patient Plan: Discharge Patient Problems: Current Active Problems Problem Status Onset Urinary retention Acute Condition: GOOD Discharge Instructions (ExitCare): Urinary Retention (DC) Additional Instructions: Follow up with your urologist today/If any recurrent difficulty urinating return to the emergency room Forms: [employer] ([place])
[2018-03-06 06:50] VITALS: BP 126/73; PULSE 89; RESP 18; TEMP 98.2
== END 2018-03-06 06:50 | disposition home or self-care (01) ==
LOC: ED 02:35
DX: R33.9 Retention of urine, unspecified (principal)

== ENCOUNTER 2019-01-15 15:50 | Outpatient (CLI) | payer MEDICARE, BC | END 2019-01-15 15:51 | disposition home or self-care (01) | LOC: RAD 15:50 ==